=== PATIENT | male | born 1965 | race Caucasian/White ===

== ENCOUNTER 2017-02-04 09:19 | Day surgery (SDC) | END 2017-02-04 13:45 | disposition home or self-care (01) | DX: K42.9 Umbilical hernia without obstruction or gangrene (principal); K43.6 Other and unspecified ventral hernia with obstruction, without gangrene | CPT/HCPCS: 49653; 85610; 85730; C1781; J0360; J0690; J1170; J2175; J2405; J2795; J3010; Z7512; Z7610 ==